=== PATIENT | male | born 1940 | race Caucasian/White ===

== ENCOUNTER 2016-11-26 13:21 | Emergency (ER) | payer MEDICARE ==
[2016-11-26 13:50] LABS: ABSOLUTE NEUTROPHIL COUNT 3.9 K/mm3 (1.8-7.7); BASO % 0.5 % (0.2-1.0); EOS # 0.3 (0.0-0.5); EOS % 4.3 % (0.9-2.9); HEMATOCRIT 41.9 % (32.0-52.0); HEMOGLOBIN 13.9 gm/l (14.0-18.0); IMM NEUT% 0.3 % (0-1); LYMPH # 1.4 (1.0-4.8); LYMPH % 22.3 % (15-45); MEAN CELL VOLUME 91.7 fl (80.0-94.0); MEAN CORPUSCULAR HEMOGLOBIN 30.4 pg (27.0-31.0); MEAN CORPUSCULAR HGB CONC 33.2 g/dl (33.0-37.0); MEAN PLATELET VOLUME 9.7 fl (7.4-10.4); MONO # 0.5 (0.0-0.8); MONO % 8.5 % (4-12); NEUT % 64.1 % (43-75); PLATELET COUNT 162 K/mm3 (130-400); RED CELL DISTRIBUTION WIDTH 13.2 % (11.5-14.5)
[2016-11-26 14:11] LABS: ALB/GLOB RATIO 1.6 (>1.0); ALBUMIN 3.8 gm/dL (3.5-5.7); CALCIUM 8.9 mg/dL (8.6-10.3); D-DIMER 0.56 mg/L FEU (0.20-0.50); INR 1.02; PROTHROMBIN TIME 10.7 SECONDS (9.3-11.4)
--- NOTE | 2016-11-26 15:26 | US ---
VENOUS ULTRASOUND OF EXTREMITY Indications: Left leg edema. Comparison: 10/16/2015 FINDINGS: Multiple grayscale, color-flow and duplex Doppler images during left lower extremity DVT ultrasound are obtained from the common femoral vein down through to the peroneal and posterior tibial veins. DEEP VENOUS THROMBOSIS: None. COMMON FEMORAL VEIN: Normal. PROXIMAL FEMORAL VEIN: Normal. MID TO DISTAL FEMORAL VEIN: Normal. POPLITEAL VEIN: Normal. PROXIMAL CALF VEINS: Normal. IMPRESSION: No deep venous thrombosis of the left leg. Findings were called to Dr. Montanez at approximately 1522 hours on 11/26/2016.
[2016-11-26] MEDS ORDERED: IBUPROFEN 800 MG TABLET ONE (15:33)
== END 2016-11-26 16:01 | disposition home or self-care (01) ==
LOC: ED 13:21
DX: R07.9 Chest pain, unspecified (principal); R60.0 Localized edema; I25.2 Old myocardial infarction; I10 Essential (primary) hypertension; E11.9 Type 2 diabetes mellitus without complications; Z95.5 Presence of coronary angioplasty implant and graft